=== PATIENT | female | born 1980 | race Caucasian/White ===

== ENCOUNTER → 2020-01-17 09:02 | Outpatient (BNVA) | payer MEDICAID, SELFPAY | PROVIDERS: Family Provider Nurse Practitioner; PCP Nurse Practitioner; Visit Provider Nurse Practitioner Family | DX: F41.8 Other specified anxiety disorders (principal); E55.9 Vitamin D deficiency, unspecified; Z79.899 Other long term (current) drug therapy | CPT/HCPCS: 36415; 80053; 80061; 81001; 82306; 83036; 84443; 85025 ==